=== PATIENT | female | born 2000 | race Two or more races ===

== ENCOUNTER 2020-11-10 19:04 | Emergency (ER) | payer SELFPAY ==
[~2020-11-10] VITALS: Ht 142.2 cm; Wt 52.2 kg
[2020-11-10 21:17] VITALS: BP 129/84
[2020-11-10 22:14] LABS: Hepatitis B Surface Antibody Positive
[2020-11-10 22:30] LABS: Hepatitis B Surface Antigen Negative (Negative)
== END 2020-11-10 23:59 | disposition home or self-care (01) ==
LOC: ER 19:04
DX: S61.232A Puncture wound without foreign body of right middle finger without damage to nail, initial encounter (principal); W27.3XXA Contact with needle (sewing), initial encounter; Y93.89 Activity, other specified; Y92.89 Other specified places as the place of occurrence of the external cause; Y99.8 Other external cause status
CPT/HCPCS: 36415; 86703; 86706; 86803; 87340

== ENCOUNTER 2023-05-01 15:06 | Emergency (ER) | payer MEDICAID, OTHER ==
[~2023-05-01] VITALS: Ht 144.8 cm; Wt 57.0 kg
[2023-05-01 15:47] LABS: Alanine Aminotransferase 16 U/L (7-40); Albumin 4.9 g/dL (3.2-4.8); Alkaline Phosphatase 79 U/L (46-116); Anion Gap 9 (5-15); Aspartate Aminotransferase 19 U/L (13-40); Blood Urea Nitrogen 7 mg/dL (9-23); Carbon Dioxide 25 mmol/L (20-30); Chloride 105 mmol/L (98-107); Glucose 95 mg/dL (74-106); Potassium 4.3 mmol/L (3.5-5.1); Sodium 139 mmol/L (136-145)
[2023-05-01 15:48] LABS: Bilirubin, Total 0.2 mg/dL (0.2-1.0); Total Protein 7.8 g/dL (5.7-8.2)
[2023-05-01 19:56] VITALS: BP 139/82; PULSE 83; RESP 18; TEMP 99.3; O2SAT 100
== END 2023-05-01 19:56 | disposition home or self-care (01) ==
LOC: EDBD 15:06 → ER 15:06
DX: F41.9 Anxiety disorder, unspecified (principal); R07.89 Other chest pain
CPT/HCPCS: 36415; 80053; 84484; 93005

== ENCOUNTER 2023-10-25 19:59 | Emergency (ER) | payer MEDICAID ==
[~2023-10-25] VITALS: Ht 147.3 cm; Wt 62.5 kg
[2023-10-25] MEDS: SODIUM CHLORIDE 0.9% 1,000 ML IVB ONE (21:00)
[2023-10-25] MEDS: MORPHINE SULFATE 4 MG/ML SYR/VIAL IV ONE (21:00)
[2023-10-25 21:52] LABS: Urine Bacteria FEW /hpf (None Seen); Urine Blood Negative /uL (Negative); Urine Clarity Turbid (Clear); Urine Color Yellow (Yellow); Urine Mucus FEW (None Seen); Urine Protein, UAD 1+ (Negative); Urine Specific Gravity 1.028 (1.001-1.035); Urine Sperm PRESENT /hpf (None Seen); Urine Urobilinogen 2 mg/dL (Negative); Urine WBC 12 /hpf (0 - 5)
[2023-10-25 22:09] LABS: Eosinophils # (auto) 0.1 10 ^3/uL (0-0.8); Eosinophils % (auto) 0.7 % (0.0-7.0); Hemoglobin 9.9 g/dL (12.2-16.2); Monocytes # (auto) 0.5 10 ^3/uL (0-1.3); Monocytes % (auto) 4.3 % (0.0-12.0); White Blood Cell 10.7 10^3/uL (4.4-10.8)
[2023-10-25 22:13] LABS: Basophils # (auto) 0.1 10 ^3/uL (0-0.2); Basophils % (auto) 0.5 % (0.0-2.0); Hematocrit 31.1 % (36.0-46.0); Lymphocytes # (auto) 1.3 10 ^3/uL (0.4-5.4); Lymphocytes % (auto) 11.8 % (10.0-50.0); Mean Corpuscular Hemoglobin 21.7 pg (28.0-32.0); Mean Corpuscular Hgb Conc. 31.8 g/dL (32.0-36.0); Neutrophils # (auto) 8.8 10 ^3/uL (1.6-8.6); Neutrophils % (auto) 82.7 % (37.0-80.0); Nucleated Red Blood Cells % 0.1 %; Red Blood Cells 4.57 10^6/uL (4.0-5.20); Red Cell Distribution Width 19.2 % (11.8-14.3)
[2023-10-25] MEDS: ONDANSETRON HCL 4 MG/2 ML VIAL IV ONE (22:15)
[2023-10-25 22:27] LABS: Alanine Aminotransferase 20 U/L (7-40); Albumin 4.3 g/dL (3.2-4.8); Alkaline Phosphatase 65 U/L (46-116); Anion Gap 10 (5-15); Aspartate Aminotransferase 21 U/L (13-40); BUN/Creatinine Ratio 9.4 (10.0-20.0); Bilirubin, Total 0.5 mg/dL (0.2-1.0); Blood Urea Nitrogen 6 mg/dL (9-23); Calcium 9.2 mg/dL (8.7-10.4); Carbon Dioxide 20 mmol/L (20-30); Chloride 108 mmol/L (98-107); Glucose 112 mg/dL (74-106); Lipase 30 U/L (12-53); Potassium 3.7 mmol/L (3.5-5.1); Sodium 138 mmol/L (136-145)
[2023-10-25 22:28] LABS: Total Protein 7.1 g/dL (5.7-8.2)
[2023-10-25 23:49] LABS: Hypochromia Moderate; Platelet Estimate Increased
[2023-10-26] MEDS ORDERED: ACET-1304 PO (02:21)
[2023-10-26] MEDS ORDERED: ZOFR4T PO (02:21)
[2023-10-26] MEDS ORDERED: CEPH500C PO (02:21)
[2023-10-26] MEDS: cefTRIAXone 1GM/50ML D5W 50 ML IV ONE (02:30)
[2023-10-26 03:15] VITALS: BP 128/78; PULSE 78; RESP 16; O2SAT 97
[2023-10-26] MEDS: cefTRIAXone SOD 1,000 MG VL IM ONE (03:18)
[2023-10-26] MEDS: LIDOCAINE 1% HCL (LOCAL ANESTH.) INJ 20ML MDV ONE (03:20)
[2023-10-26] MEDS: LIDOCAINE 1% HCL (LOCAL ANESTH.) INJ 20ML MDV IJ ONE (03:22)
== END 2023-10-26 03:27 | disposition home or self-care (01) ==
LOC: ER 19:59
DX: N39.0 Urinary tract infection, site not specified (principal); R10.2 Pelvic and perineal pain
CPT/HCPCS: 36415; 74176; 80053; 81001; 83690; 84702; 85025; 96361; 96372; 96374; 99285; J0696; J2001; J2405; J7030